=== PATIENT | female | born 1935 | race Caucasian/White ===

== ENCOUNTER → 2017-02-27 | Outpatient (CLI) | payer OTHER ==
[~2017-02-27] MED LIST: ASPIRIN EC325 M1 PO; BUTALB-ACETAMI1 EACH; COLACE 100 MG100 MG PO; DIAZEPAM 5 MG5 MG PO; DILTIAZEM ER240 M1 PO; DULCOLAX5 MG PO; FENTANYL PA12 MCG/H1 TRANSDERM; FOSAMAX 70 MG T70 M1; HYDROCHLOROTHIA25 M1 PO; LIDODERM 5%1 PATC1 TRANSDERM; MIRALAX17 GM PO; NIASPAN 500 MG500 M1 PO; NORCO 5-325 TA1 EACH PO; PAIN & FEVER325 MG PO; PERCOCET 5-3251 EACH PO; PERCOCET PO; PRAVACHOL80 MG; PROZAC40 MG PO; SYNTHROID150 MCG PO; TRAMADOL 50 MG50 MG PO; VALIUM5 MG PO; ZOCOR20 MG PO
== END ==
LOC: RAD 01:21
DX: Z12.31 Encounter for screening mammogram for malignant neoplasm of breast (principal)

== ENCOUNTER → 2018-02-28 | Outpatient (CLI) | payer OTHER | LOC: RAD 01:04 | DX: Z12.31 Encounter for screening mammogram for malignant neoplasm of breast (principal) ==

== ENCOUNTER → 2019-03-04 | Outpatient (CLI) | payer OTHER | LOC: RAD 08:54 | DX: Z12.31 Encounter for screening mammogram for malignant neoplasm of breast (principal) ==

== ENCOUNTER → 2020-03-11 | Outpatient (CLI) | payer OTHER | LOC: BC 10:11 | PROVIDERS: ATTEND Internal Medicine | DX: Z12.31 Encounter for screening mammogram for malignant neoplasm of breast (principal) ==

== ENCOUNTER → 2020-04-19 | Outpatient (CLI) | payer OTHER ==
[~2020-04-19] MED LIST changes: +CALCIUM500 MG PO; +CYMBALTA30 MG PO; +NORCO 10-325 T1 EACH PO; +SUPER THERAVIT1 EACH PO; +ULTRAM50 MG PO; +VITAMIN D31250 MCG PO
== END ==
LOC: MRI 10:17
PROVIDERS: ATTEND Nuclear Medicine Nuclear Cardiology
DX: S22.080A Wedge compression fracture of T11-T12 vertebra, initial encounter for closed fracture (principal); M48.061 Spinal stenosis, lumbar region without neurogenic claudication; X58.XXXA Exposure to other specified factors, initial encounter; Y93.89 Activity, other specified; Y92.89 Other specified places as the place of occurrence of the external cause; Y99.8 Other external cause status; Z98.890 Other specified postprocedural states

== ENCOUNTER → 2020-04-19 | Outpatient (CLI) | payer OTHER ==
[~2020-04-19] VITALS: Ht 162.6 cm; Wt 68.0 kg
[2020-04-19 14:02] VITALS: BP 145/83
[2020-04-19 14:19] LABS: HEMATOCRIT 42.6 % (37.0-47.0); HEMOGLOBIN 14.3 gm/dL (12.0-15.0); MCHC 33.6 g/dL (28.0-37.0); MCV 92.4 fL (80.0-100.0); RBC 4.61 mil/uL (4.20-5.00); RDW 13.7 % (10.5-14.5); WBC 7.9 thou/uL (4.0-11.0)
[2020-04-19 14:33] LABS: PROTIME 10.5 Seconds (9.3-11.4)
== END | disposition home or self-care (01) ==
LOC: CATH 13:05
PROVIDERS: ATTEND Nuclear Medicine Nuclear Cardiology
DX: M54.9 Dorsalgia, unspecified (principal); M80.08XA Age-related osteoporosis with current pathological fracture, vertebra(e), initial encounter for fracture; I10 Essential (primary) hypertension; E78.00 Pure hypercholesterolemia, unspecified; F32.9 Major depressive disorder, single episode, unspecified; M19.90 Unspecified osteoarthritis, unspecified site; Z79.899 Other long term (current) drug therapy; Z98.890 Other specified postprocedural states

== ENCOUNTER → 2020-04-28 | Outpatient (CLI) | payer OTHER ==
[~2020-04-28] MED LIST changes: +HYDROCODON-ACE1 EAC7 PO
== END ==
LOC: MRI 08:06
PROVIDERS: ATTEND Nuclear Medicine Nuclear Cardiology
DX: M47.816 Spondylosis without myelopathy or radiculopathy, lumbar region (principal); M41.84 Other forms of scoliosis, thoracic region; N28.1 Cyst of kidney, acquired

== ENCOUNTER 2020-04-29 12:01 | Emergency (ER) | payer OTHER ==
[~2020-04-29] VITALS: Ht 162.6 cm; Wt 68.0 kg
[~2020-04-29 12:01] MED LIST changes: -HYDROCODON-ACE1 EAC7 PO
[2020-04-29 12:10] VITALS: BP 123/75
[2020-04-29] MEDS ORDERED: HYDROCODON-ACE1 EAC7 PO (12:42)
== END 2020-04-29 12:51 | disposition home or self-care (01) ==
LOC: ER 12:01
DX: M54.5 Low back pain (principal); I10 Essential (primary) hypertension; E78.00 Pure hypercholesterolemia, unspecified; F32.9 Major depressive disorder, single episode, unspecified; M19.90 Unspecified osteoarthritis, unspecified site; Z79.899 Other long term (current) drug therapy; Z87.891 Personal history of nicotine dependence

== ENCOUNTER → 2021-03-16 | Outpatient (CLI) | payer OTHER ==
[~2021-03-16] VITALS: Ht 162.6 cm; Wt 67.6 kg
[~2021-03-16] MED LIST changes: +HYDROCODON-ACE1 EAC7 PO
[2021-03-16 09:55] VITALS: BP 126/51
--- NOTE | 2021-03-16 10:10 | NUR ---
Pain Clinic Assessment: 1. History of Osteoarthritis: RIGHT KNEE RIGHT SHOULDER History of Rheumatoid Arthritis: Not Applicable 2. Height: 5 ft. 4 in. 162.6 cm. Weight: 149.0 lb. oz. 67.586 kg. Patient's BMI: 25.6 3. Vital Signs: BP: 126/51 Pulse: 86 Resp: 20 Temp: 02 Sat: 96 ECG Mon: 4. Pain Intensity: 9 5. Fall Risk: Dizziness: N Needs help standing or walking: Y Fallen in the last 3 months: Y Fall risk comments: 6. Patient on Blood Thinner: None 7. History of Hypertension: Y 8. Opioid Therapy greater than 6 weeks: Opiate Contract Signed: 9. Risk Assessment Tool Provided: low-1 10. Functional Assessment Tool: 11. Recreational Drug Use: Never Drug Type: Tobacco Use: Never Smoker Tobacco Type: Amount or Packs/day: How Many Years: Alcohol Use: No Frequency: Quant:
== END | disposition home or self-care (01) ==
LOC: PAIN 07:03
PROVIDERS: ATTEND Anesthesiology Pain Medicine
DX: M54.16 Radiculopathy, lumbar region (principal); G89.29 Other chronic pain; I10 Essential (primary) hypertension; M19.90 Unspecified osteoarthritis, unspecified site; F32.9 Major depressive disorder, single episode, unspecified; E07.9 Disorder of thyroid, unspecified; Z98.890 Other specified postprocedural states; Z79.899 Other long term (current) drug therapy